=== PATIENT | female | born 1980 | race Native Hawaiian/Other Pacific Islander ===

== ENCOUNTER → 2017-03-01 | Outpatient (CLI) | payer OTHER ==
[~2017-03-01] MED LIST: ACETAMINOPHEN325 M1 PO; APAP500 PO; CALCIUM 500 +1 EAC5 PO; IBUPROFEN 600600 M1 PO; ONDANSETRON ODT4 MG PO; PEPCID AC20 M1 PO; PRENATAL PO; ZOFRAN ODT4 MG PO
== END ==
LOC: RAD 09:28
DX: M54.16 Radiculopathy, lumbar region (principal); M41.86 Other forms of scoliosis, lumbar region

== ENCOUNTER → 2017-08-02 | Outpatient (CLI) | payer OTHER | LOC: RAD 01:28 | DX: Z12.31 Encounter for screening mammogram for malignant neoplasm of breast (principal) ==

== ENCOUNTER → 2017-10-02 | Outpatient (CLI) | payer OTHER | LOC: MRI 12:17 | DX: M54.5 Low back pain (principal) ==

== ENCOUNTER 2018-07-29 05:19 | Emergency (ER) | payer OTHER ==
[~2018-07-29] VITALS: Ht 162.6 cm; Wt 90.7 kg
[2018-07-29] MEDS ORDERED: METFORMIN HCL500 MG PO (05:32)
[2018-07-29] MEDS ORDERED: WELLBUTRIN SR150 MG PO (05:32)
[2018-07-29 05:52] LABS: URINE BILIRUBIN NEGATIVE (Negative); URINE BLOOD 1+ (Negative); URINE CLARITY SL CLOUDY; URINE COLOR YELLOW; URINE GLUCOSE-RANDOM* NEGATIVE (Negative); URINE KETONES 1+ (Negative); URINE LEUKOCYTES-REFLEX NEGATIVE (Negative); URINE NITRITE-REFLEX NEGATIVE (Negative); URINE PROTEIN (DIPSTICK) NEGATIVE (Negative); URINE SPECIFIC GRAVITY 1.015 (1.005-1.035); URINE UROBILINOGEN 0.2 E.U./dl (0.2-1.0)
[2018-07-29 05:54] LABS: ABSOLUTE NEUTROPHILS 8.2 thou/uL (1.4-8.2); BASOPHILS 0.9 % (0.0-2.0); EOSINOPHILS 0.9 % (0.0-3.0); HEMATOCRIT 41.7 % (37.0-47.0); HEMOGLOBIN 14.3 gm/dL (12.0-15.0); LYMPHOCYTES 15.9 % (24.0-44.0); MCH 29.4 pg (26.0-34.0); MCHC 34.4 g/dL (28.0-37.0); MCV 85.7 fL (80.0-100.0); MONOCYTES 5.5 % (1.0-8.0); PLATELET COUNT 234 thou/uL (150-400); POLYS 76.8 % (36.0-66.0); RBC 4.86 mil/uL (4.20-5.00); RDW 13.3 % (10.5-14.5); WBC 10.7 thou/uL (4.0-11.0)
[2018-07-29 06:02] LABS: CASTS None Seen /LPF (None Seen); CRYSTALS None Seen /LPF (None Seen); MUCUS 0-3 Light strn/LPF (None Seen); SQUAMOUS >10 Many /LPF (0-3)
[2018-07-29 06:03] LABS: CALCIUM 9.3 mg/dL (8.5-10.1); POTASSIUM 3.9 mmol/L (3.5-5.1); URINE RBC 3-10 Few /HPF (0-2); URINE WBC-REFLEX 0-5 Rare /HPF (0-5)
[2018-07-29 06:09] LABS: ALBUMIN 3.9 g/dL (3.4-5.0); TOTAL BILIRUBIN 0.5 mg/dL (<0.1-1.0); TOTAL PROTEIN 8.1 g/dL (6.4-8.2)
[2018-07-29] MEDS ORDERED: ZOFRAN ODT8 MG SUBLING (07:42)
[2018-07-29 07:54] VITALS: BP 140/87
== END 2018-07-29 07:55 | disposition home or self-care (01) ==
LOC: ER 05:19
PROVIDERS: Emergency Medicine
DX: R11.2 Nausea with vomiting, unspecified (principal); F32.9 Major depressive disorder, single episode, unspecified

== ENCOUNTER → 2020-02-12 | Outpatient (CLI) | payer OTHER ==
[~2020-02-12] MED LIST changes: +METFORMIN HCL500 MG PO; +WELLBUTRIN SR150 MG PO; +ZOFRAN ODT8 MG SUBLING
== END ==
LOC: RAD 09:32
DX: Z02.1 Encounter for pre-employment examination (principal)